=== PATIENT | male | born 1965 | race Caucasian/White ===

== ENCOUNTER 2016-12-11 08:39 | Emergency (ER) | payer SELFPAY ==
[~2016-12-11] VITALS: Ht 175.3 cm; Wt 117.9 kg
[2016-12-11] MEDS ORDERED: IV NORMAL SALINE 1000ML BAG 1,000 ML IV SCH (09:13)
[2016-12-11] MEDS ORDERED: ONDANSETRON PF 4 MG/2 ML VIAL. IV ONE (09:15)
[2016-12-11] MEDS ORDERED: FENTANYL PF 100 MCG/2 ML VIAL. IV ONE (09:15)
[2016-12-11 09:31] LABS: BASO % 1 % (0-3); EOS % 2 % (0-3); HEMATOCRIT 45.8 % (39.0-53.0); HEMOGLOBIN 15.1 g/dL (13.0-17.5); LYMPH # 1.5 x10^3/uL (1.0-4.8); LYMPH % 19 % (24-48); MEAN CORPUSCULAR HEMOGLOBIN 26 pg (25-35); MEAN CORPUSCULAR HGB CONC 33 g/dL (31-37); MEAN CORPUSCULAR VOLUME 78 fL (79-100); MONO % 15 % (0-9); NEUT % 64 % (31-73); PLATELET COUNT 321 x10^3/uL (140-400); RED BLOOD COUNT 5.87 x10^6/uL (4.30-5.70); RED CELL DISTRIBUTION WIDTH 15.2 % (11.5-14.5); WHITE BLOOD COUNT 7.9 x10^3/uL (4.0-11.0)
--- NOTE | 2016-12-11 09:33 | PHYS DOC ---
Past Medical History Past Medical History: Bipolar Past Surgical History: Other Additional Past Surgical Histo: "ON MY PRIVATE PARTS" Alcohol Use: Heavy Drug Use: Cocaine, Marijuana, Phencyclidine, Other Adult General Chief Complaint Chief Complaint: RECTAL BLEED HPI HPI Patient is a 51 year old male who presents with complaint of lower abdominal pain and rectal bleeding. Patient reports this is been occurring for months, but he decided to get checked out as it has "taken a toll on me". He describes a sharp pain across his lower abdomen without clear inciting or mitigating factors. He has not tried taking anything for the pain. He also reports some blood in his stool and on the toilet paper time he has a BM for the past few months. Only other acute complaint is nausea. No prior similar episodes. Review of Systems Review of Systems Constitutional: Denies fever or chills Eyes: Denies change in visual acuity or eye pain HENT: Denies nasal congestion or sore throat Respiratory: Denies cough or shortness of breath Cardiovascular: Denies chest pain GI: Lower abdominal pain, nausea, bloody stools. Denies diarrhea : Denies dysuria or hematuria Musculoskeletal: Denies back pain or joint pain Integument: Denies rash or skin lesions Neurologic: Denies headache, focal weakness or sensory changes Current Medications Current Medications Current Medications Medications (Trade) Dose Ordered Sig/Chidi Start Time Stop Time Status Last Admin Dose Admin Fentanyl Citrate (Fentanyl 2ml Vial) 25 mcg 1X ONCE 12/11/16 09:15 12/11/16 09:17 DC 12/11/16 09:26 25 MCG Ondansetron HCl (Zofran) 4 mg 1X ONCE 12/11/16 09:15 12/11/16 09:17 DC 12/11/16 09:22 4 MG Sodium Chloride (Iv Sodium Chloride 0.9% 1000ml Bag) 1,000 ml @ 1,000 mls/hr Q1H 12/11/16 09:13 12/11/16 10:12 DC 12/11/16 09:22 1,000 MLS/HR Allergies Allergies Allergies Coded Allergies Type Severity Reaction Last Updated Verified No Known Drug Allergies 12/11/16 No Physical Exam Physical Exam Constitutional: Well developed, well nourished, no acute distress, non-toxic appearance HENT: Normocephalic, atraumatic, bilateral external ears normal Eyes: EOMI, conjunctiva normal, no discharge Neck: Normal range of motion, no stridor Cardiovascular: Heart rate normal, regular rhythm, no murmur Lungs & Thorax: Bilateral breath sounds clear to auscultation Abdomen: Bowel sounds normal, soft, non-distended, lower abdominal TTP without guarding or rebound Rectal: 2 small external hemorrhoids noted, no gross blood in vault Skin: Warm, dry, no erythema, no rash Extremities: No obvious deformity, no edema Neurologic:Somnolent but easily arousable, oriented X 3, no gross deficits noted Current Patient Data Vital Signs Vital Signs Date Time Temp Pulse Resp B/P Pulse Ox O2 Delivery O2 Flow Rate FiO2 12/11/16 10:56 86 102/57 97 Room Air 12/11/16 10:26 17 12/11/16 08:50 98.3 98.3 Lab Values Laboratory Tests Test 12/11/16 08:58 12/11/16 10:33 12/11/16 11:14 White Blood Count 7.9x10^3/uL (4.0-11.0) Red Blood Count 5.87x10^6/uL (4.30-5.70) H Hemoglobin 15.1g/dL (13.0-17.5) Hematocrit 45.8% (39.0-53.0) Mean Corpuscular Volume 78fL (79-100) L Mean Corpuscular Hemoglobin 26pg (25-35) Mean Corpuscular Hemoglobin Concent 33g/dL (31-37) Red Cell Distribution Width 15.2% (11.5-14.5) H Platelet Count 321x10^3/uL (140-400) Neutrophils (%) (Auto) 64% (31-73) Lymphocytes (%) (Auto) 19% (24-48) L Monocytes (%) (Auto) 15% (0-9) H Eosinophils (%) (Auto) 2% (0-3) Basophils (%) (Auto) 1% (0-3) Neutrophils # (Auto) 5.1x10^3uL (1.8-7.7) Lymphocytes # (Auto) 1.5x10^3/uL (1.0-4.8) Monocytes # (Auto) 1.2x10^3/uL (0.0-1.1) H Eosinophils # (Auto) 0.1x10^3/uL (0.0-0.7) Basophils # (Auto) 0.0x10^3/uL (0.0-0.2) Prothrombin Time 13.7SEC (11.7-14.0) Prothrombin Time INR 1.1 (0.8-1.1) Sodium Level 138mmol/L (136-145) Potassium Level 4.2mmol/L (3.5-5.1) Chloride Level 101mmol/L (98-107) Carbon Dioxide Level 26mmol/L (21-32) Anion Gap 11 (6-14) Blood Urea Nitrogen 18mg/dL (8-26) Creatinine 2.3mg/dL (0.7-1.3) H Estimated GFR (Cockcroft-Gault) 30.0 BUN/Creatinine Ratio 8 (6-20) Glucose Level 95mg/dL (70-99) Calcium Level 11.1mg/dL (8.5-10.1) H Total Bilirubin 0.5mg/dL (0.2-1.0) Aspartate Amino Transferase (AST) 28U/L (15-37) Alanine Aminotransferase (ALT) 30U/L (16-63) Alkaline Phosphatase 91U/L (46-116) Total Protein 8.5g/dL (6.4-8.2) H Albumin 4.0g/dL (3.4-5.0) Albumin/Globulin Ratio 0.9 (1.0-1.7) L Lipase 95U/L (73-393) Stool Occult Blood Negative (NEG) Urine Color Yellow Urine Clarity Cloudy Urine pH 5.5 Urine Specific [place] 1.025 Urine Protein 30mg/dL (NEG-TRACE) Urine Glucose (UA) Negativemg/dL (NEG) Urine Ketones (Stick) 40mg/dL (NEG) Urine Blood Negative (NEG) Urine Nitrite Negative (NEG) Urine Bilirubin Small (NEG) Urine Urobilinogen Dipstick 0.2mg/dL (0.2 mg/dL) Urine Leukocyte Esterase Negative (NEG) Urine RBC 0/HPF (0-2) Urine WBC Rare/HPF (0-4) Urine Squamous Epithelial Cells Few/LPF Urine Bacteria 0/HPF (0-FEW) Urine Mucus Marked/LPF Laboratory Tests 12/11/16 08:58 Laboratory Tests 12/11/16 08:58 EKG EKG [] Radiology/Procedures Radiology/Procedures CT A/P: Impression: No acute abnormality is seen. Course & Med Decision Making Course & Med Decision Making Pertinent Labs and Imaging studies reviewed. (See chart for details) Patient is 51 year old male who presents with rectal bleeding, lower abdominal pain. Rectal pain and bleeding likely due to external hemorrhoids noted on exam. Will check labs, UA, CT abdomen/pelvis to evaluate for other acute process. IV fluids, pain meds, nausea meds ordered for patient relief. Imaging results as above, without acute abnormality. Labs notable for elevated creatinine; no prior to compare. Fecal occult blood test negative. Discussed results with patient, as well as need for close follow-up for evaluation of renal function. Will discharge with prescription for Preparation H and Phenergan , instructions for follow-up with PCP and GI, return precautions. Dragon Disclaimer Dragon Disclaimer This electronic medical record was generated, in whole or in part, using a voice recognition dictation system. Departure Departure Impression: Primary Impression: Rectal bleeding Additional Impressions: Abdominal pain Elevated serum creatinine External hemorrhoids Disposition: HOME, SELF-CARE Condition: IMPROVED Referrals: NO PCP (PCP) KAITLYNN SINGER MD Patient Instructions: Hemorrhoids, Rectal Bleeding Additional Instructions: Thank you for allowing us to provide care today in the Emergency Department. Take the provided medication as directed. Your kidney function was not very good today. You will need to follow up soon with a primary care doctor to discuss this. Schedule a follow up appointment with your primary care doctor and with a GI specialist using the provided contact information. Return promptly to the Emergency Department if you develop any new or concerning symptoms. Scripts Phenyleph/Mineral Oil/Petrolat (Preparation H Ointment)28 Gm Oint.appl28 Gm RC QID #1 TUBE Prov:ALFONSO MARTIN MD 12/11/16 Promethazine Hcl 25 Mg [id number] Mg PO Q6H PRN NAUSEA/VOMITING #15 TAB Prov:ALFONSO MARTIN MD 12/11/16 Problem Qualifiers ALFONSO MARTIN MD Dec 11, 2016 09:33
[2016-12-11 09:44] LABS: CALCIUM 11.1 mg/dL (8.5-10.1); CREATININE 2.3 mg/dL (0.7-1.3); POTASSIUM 4.2 mmol/L (3.5-5.1)
[2016-12-11 09:49] LABS: ALBUMIN/GLOBULIN RATIO 0.9 (1.0-1.7); TOTAL BILIRUBIN 0.5 mg/dL (0.2-1.0); TOTAL PROTEIN 8.5 g/dL (6.4-8.2)
[2016-12-11 09:51] LABS: INR 1.1 (0.8-1.1); PROTHROMBIN TIME PATIENT 13.7 SEC (11.7-14.0)
--- NOTE | 2016-12-11 10:34 | RAD ---
CT scan of the abdomen and pelvis without contrast 12/11/2016 Clinical history: Lower abdominal pain. Technique: Unenhanced, contiguous, 5 mm axial sections were obtained through the abdomen and pelvis. One or more of the following individualized dose reduction techniques were utilized for this study: 1. Automated exposure control. 2. Adjustment of the mA and/or kV according to patient size. 3. Use of iterative reconstruction technique. Findings: Images through the lung bases demonstrate minimal dependent subsegmental atelectasis bilaterally. The liver parenchyma has a decreased attenuation consistent with mild fatty infiltration. The spleen, pancreas, and adrenal glands are within normal limits. No renal or ureteral calculus is seen. There is no evidence of obstruction of either collecting system. Mild atherosclerotic calcification of the abdominal aorta is seen. The abdominal aorta tapers normally. The gallbladder is contracted. No free fluid or free air is seen within the abdomen. There is no evidence of bowel obstruction. The appendix is well-visualized and is within normal limits. Images through the pelvis demonstrate the urinary bladder distended with urine. Calcifications are seen within the pelvis consistent with phleboliths. No free fluid is seen. Minimal S shaped curvature of the thoracolumbar spine is seen. Degenerative changes are seen involving the lower thoracic and lumbar spine and both hips. Impression: No acute abnormality is seen.
[2016-12-11 10:52] LABS: NEG OBC FOB NEG; POS OBC FOB POS
[2016-12-11 10:56] VITALS: BP 102/57
[2016-12-11 11:31] LABS: BACTERIA,URINE 0 /HPF (0-FEW); BILIRUBIN,URINE SMALL (NEG); GLUCOSE,URINE NEGATIVE (NEG); NITRITE,URINE NEGATIVE (NEG); PH,URINE 5.5; PROTEIN,URINE 30 mg/dL (NEG-TRACE); RBC,URINE 0 /HPF (0-2); UROBILINOGEN,URINE 0.2 mg/dL (0.2 mg/dL); WBC,URINE RARE /HPF (0-4)
[2016-12-11 11:32] LABS: SQUAMOUS EPITHELIAL CELL,UR FEW /LPF
[2016-12-11] MEDS ORDERED: PROM25TA10 PO (11:50)
[2016-12-11] MEDS ORDERED: PHEN28OI RC (11:50)
== END 2016-12-11 11:55 | disposition home or self-care (01) ==
LOC: ER 08:39
DX: K64.4 Residual hemorrhoidal skin tags (principal); K62.5 Hemorrhage of anus and rectum; R74.0 Nonspecific elevation of levels of transaminase and lactic acid dehydrogenase [LDH]; R10.30 Lower abdominal pain, unspecified; F12.10 Cannabis abuse, uncomplicated; F14.10 Cocaine abuse, uncomplicated; F16.10 Hallucinogen abuse, uncomplicated; F10.10 Alcohol abuse, uncomplicated
CPT/HCPCS: 36415; 74176; 80053; 81001; 82274; 83690; 85027; 85610; 96361; 96374; 96375; 99285; J2405; J3010; J7030

== ENCOUNTER 2019-04-23 09:03 | Emergency (ER) | payer SELFPAY ==
[~2019-04-23] VITALS: Ht 177.8 cm; Wt 113.4 kg
[~2019-04-23 09:03] MED LIST: PHEN28OI RC; PROM25TA10 PO
[2019-04-23 09:15] VITALS: BP 130/62
[2019-04-23] MEDS ORDERED: IPRATRPIUM/ALBUTEROL 0.5/2.5MG 3 ML NEBU. NEB ONE (09:30)
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
[2019-04-23] MEDS ORDERED: AMOX500C PO (10:07)
[2019-04-23] MEDS ORDERED: BENZ100C PO (10:07)
[2019-04-23] MEDS ORDERED: TRAM-48 PO (10:07)
== END 2019-04-23 10:23 | disposition home or self-care (01) ==
LOC: ER 09:03
DX: J18.9 Pneumonia, unspecified organism (principal); Z71.6 Tobacco abuse counseling; R53.1 Weakness; R11.10 Vomiting, unspecified; F14.20 Cocaine dependence, uncomplicated; F10.20 Alcohol dependence, uncomplicated; Y90.9 Presence of alcohol in blood, level not specified; F17.200 Nicotine dependence, unspecified, uncomplicated; F31.9 Bipolar disorder, unspecified
CPT/HCPCS: 71046; 94640; 99284; J7620

== ENCOUNTER 2019-04-25 00:14 | Inpatient (IN) | payer SELFPAY ==
[~2019-04-25] VITALS: Ht 172.7 cm; Wt 90.7 kg
[~2019-04-25 00:14] MED LIST changes: +AMOX500C PO; +BENZ100C PO; +TRAM-48 PO
[2019-04-25] MEDS ORDERED: IPRATRPIUM/ALBUTEROL 0.5/2.5MG 3 ML NEBU. NEB ONE (03:30)
[2019-04-25 03:48] LABS: BASO # 0.1 x10^3/uL (0.0-0.2); BASO % 1 % (0-3); EOS # 0.3 x10^3/uL (0.0-0.7); EOS % 3 % (0-3); HEMATOCRIT 40.6 % (39.0-53.0); HEMOGLOBIN 13.4 g/dL (13.0-17.5); LYMPH # 2.5 x10^3/uL (1.0-4.8); LYMPH % 27 % (24-48); MEAN CORPUSCULAR HEMOGLOBIN 27 pg (25-35); MEAN CORPUSCULAR HGB CONC 33 g/dL (31-37); MEAN CORPUSCULAR VOLUME 81 fL (79-100); MONO % 12 % (0-9); NEUT # 5.2 x10^3/uL (1.8-7.7); NEUT % 57 % (31-73); PLATELET COUNT 301 x10^3/uL (140-400); RED BLOOD COUNT 5.02 x10^6/uL (4.30-5.70); RED CELL DISTRIBUTION WIDTH 14.5 % (11.5-14.5); WHITE BLOOD COUNT 9.1 x10^3/uL (4.0-11.0)
[2019-04-25 03:56] LABS: GFR 77.6; POTASSIUM 3.6 mmol/L (3.5-5.1)
[2019-04-25 04:01] LABS: ALBUMIN 3.1 g/dL (3.4-5.0); ALBUMIN/GLOBULIN RATIO 0.7 (1.0-1.7); TOTAL BILIRUBIN 0.2 mg/dL (0.2-1.0); TOTAL PROTEIN 7.8 g/dL (6.4-8.2)
[2019-04-25] MEDS ORDERED: IV NORMAL SALINE 1000ML BAG 1,000 ML IV ONE (04:30)
[2019-04-25] MEDS ORDERED: LIDO:MAALOX 1:1 20 ML SINGLE DOSE. SWSW ONE (05:00)
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
[2019-04-25] MEDS ORDERED: LORazepam 0.5 MG TABLET PO ONE (05:30)
[2019-04-25 05:45] LABS: AMPHETAMINE/METHAMPHETAMINE NEG (NEG); BARBITURATES NEG (NEG); BENZODIAZEPINES NEG (NEG); CANNABINOIDS NEG (NEG); COCAINE POS (NEG); METHADONE NEG (NEG); OPIATES NEG (NEG); PHENCYCLIDINE NEG (NEG)
--- NOTE | 2019-04-25 06:17 | RAD ---
PORTABLE CHEST 1V Clinical Indication: Shortness of breath. Comparison: Two-view chest, 2 days ago. Findings: The cardiomediastinal silhouette is normal. Lungs are clear. There is no pneumothorax. No pleural effusion is appreciated. No acute bone abnormality. IMPRESSION: No acute cardiopulmonary process. Electronically signed by: Tristan Rosa MD (04/25/2019 6:14 AM) [id number]
[2019-04-25] MEDS ORDERED: cefTRIAXone IV Push 1 GM VIAL. IVP ONE (06:30)
[2019-04-25] MEDS ORDERED: guaiFENesin/CODEINE 100mg/10mg 5 ML LIQUID PO ONE (06:30)
[2019-04-25] MEDS ORDERED: IV NORMAL SALINE 1000ML BAG 1,000 ML IV SCH (06:30)
[2019-04-25 07:17] VITALS: BP 135/75
[2019-04-25] MEDS ORDERED: IPRATRPIUM/ALBUTEROL 0.5/2.5MG 3 ML NEBU. NEB SCH (08:00)
[2019-04-25] MEDS ORDERED: ACETAMINOPHEN 500 MG TABLET PO PRN (09:00)
[2019-04-25] MEDS ORDERED: guaiFENesin DM 200MG/20MG 10 ML SYRUP PO PRN (09:00)
[2019-04-25] MEDS ORDERED: ACETAMINOPHEN/CODEINE 300/30MG TABLET. PO PRN (09:00)
[2019-04-25] MEDS ORDERED: traMADol 50 MG TABLET PO PRN (09:15)
--- NOTE | 2019-04-25 10:16 | PDOC1 ---
History and Physical Date of Admission Date of Admission DATE: 04/25/19 TIME: 10:10 Identification/Chief Complaint Chief Complaint sepsis sxs Source Source: Caregiver, Chart review, Patient History of Present Illness History of Present Illness 54-year-old -[place]ub[place] male came in to fast track of the ER last night for acute bronchitis symptoms - fulfilled SIRS criteria. Was about to be sent home then later on tells ER MD that he is suicidal. He lost his brother 3 weeks in a car accident. SItter at bedside. Seen by JAQUELINE today, not actively suicidal. Got Ativan, some agitation last night and is now feeding drowsy. Chest x-ray is clear, he sounds clear on auscultation Labs are unremarkable. Lactate is normal. Will go home today and needs a cab rid e. Referral for RSI etc. suicidal hotline given to patient Discussed with RNJaqueline liaison-given some safety clinics resources to Consults performed none Observation status Did test positive for cocaine on UDS though he denies Past Medical History Cardiovascular: No pertinent hx Pulmonary: No pertinent hx GI: No pertinent hx Heme/Onc: No pertinent hx Hepatobiliary: No pertinent hx Psych: No pertinent hx Rheumatologic: No pertinent hx Infectious disease: No pertinent hx ENT: No pertinent hx Endocrine: No pertinent hx Dermatology: No pertinent hx Past Surgical History Past Surgical History: No pertinent history Family History Family History: No Significant Social History Smoke: No ALCOHOL: none Drugs: Cocaine Current Problem List Problem List Problems Medical Problems: (1) Pneumonia Status: Acute Current Medications Current Medications Current Medications Albuterol/ Ipratropium (Duoneb) 3 ml 1X ONCE NEB Last administered on 04/25/19at 04:31; Start 04/25/19 at 03:30; Stop 04/25/19 at 03:31; Status DC Sodium Chloride 1,000 ml @ 1,000 mls/hr 1X ONCE IV Last administered on 04/25/19at 04:13; Start 04/25/19 at 04:30; Stop 04/25/19 at 05:29; Status DC Multi-Ingredient Mouthwash/Gargle (Gi Cocktail) 20 ml 1X ONCE SWSW Last administered on 04/25/19at 04:54; Start 04/25/19 at 05:00; Stop 04/25/19 at 05:01; Status DC Levofloxacin (Levaquin) 750 mg 1X ONCE PO Last administered on 04/25/19at 05:06; Start 04/25/19 at 05:15; Stop 04/25/19 at 05:16; Status DC Lorazepam (Ativan) 1 mg 1X ONCE PO Last administered on 04/25/19at 05:46; Start 04/25/19 at 05:30; Stop 04/25/19 at 05:31; Status DC Sodium Chloride 1,000 ml @ 100 mls/hr Q10H IV Last administered on 04/25/19at 07:27; Start 04/25/19 at 06:30; Stop 04/25/19 at 10:10; Status DC Albuterol/ Ipratropium (Duoneb) 3 ml RTQID NEB Last administered on 04/25/19at 08:07; Start 04/25/19 at 08:00; Stop 04/25/19 at 10:10; Status DC Guaifenesin/ Codeine Phosphate (Robitussin Ac) 5 ml 1X ONCE PO Last administered on 04/25/19at 07:26; Start 04/25/19 at 06:30; Stop 04/25/19 at 06:31; Status DC Ceftriaxone Sodium (Rocephin) 1 gm 1X ONCE IVP Last administered on 04/25/19at 06:31; Start 04/25/19 at 06:30; Stop 04/25/19 at 06:31; Status DC Guaifenesin (Robitussin Dm) 10 ml PRN Q6HRS PRN PO COUGH; Start 04/25/19 at 09:00 Acetaminophen (Tylenol) 500 mg PRN Q6HRS PRN PO HEADACHE / TEMP; Start 04/25/19 at 09:00 Acetaminophen/ Codeine Phosphate (Tylenol #3) 1 tab PRN Q6HRS PRN PO PAIN MILD; Start 04/25/19 at 09:00 Amoxicillin (Amoxil) 500 mg QRO180 PO ; Start 04/25/19 at 14:00 Benzonatate (Tessalon Perle) 100 mg MHA259 PO ; Start 04/25/19 at 14:00 Tramadol HCl (Ultram) 50 mg PRN Q6HRS PRN PO PAIN MODERATE TO SEVERE; Start 04/25/19 at 09:15; Stop 04/25/19 at 10:10; Status DC Active Scripts Active Ultram (Tramadol Hcl) 50 Mg Tablet 50 Mg PO Q6HRS PRN Tessalon Perle (Benzonatate) 100 Mg Capsule 1 Cap PO TID Amoxicillin 500 Mg Capsule 1 Cap PO Q8HRS Allergies Allergies: Coded Allergies: No Known Drug Allergies (Unverified , 12/11/16) ROS Review of System A 14 point ROS was completed with the following noted as positive: Other systems reviewed and negative. \CONSTITUTIONAL: No fever or chills EYES: No recent changes SKIN: No rash or itching CARDIOVASCULAR: No chest pain, syncope, palpitations, or edema RESPIRATORY: No SOB or cough GASTROINTESTINAL: No nausea, vomiting or abdominal pain NEUROLOGICAL: No headaches or weakness ENDOCRINE: No cold or heat intolerance GENITOURINARY: No urgency or frequency of urination MUSCULOSKELETAL: No back pain or joint pain LYMPHATICS: No enlarged lymph nodes PSYCHIATRIC: No anxiety or depression Physical Exam General: No acute distress, Other (drowsy from Ativan given because of agitation) HEENT: Atraumatic, PERRLA Lungs: Clear to auscultation, Normal air movement Heart: S1S2, RRR, no thrills, no rubs, no gallops, no murmurs Cardiovascular: S1, S2 Breasts: Normal, Rt breast nml w/o mass, Lt breast nml w/o mass, Nipples normal Abdomen: Normal bowel sounds, Soft, No tenderness, No hepatosplenomegaly, No masses Male Genitals Exam: normal genitalia, normal prostate PELVIC: Nml ext genitalia Extremities: No clubbing, No cyanosis, No edema, Normal pulses, No tenderness/swelling Skin: No rashes, No breakdown, No significant lesion Neuro: Normal gait, Normal speech, Strength at 5/5 X4 ext, Normal tone, Sensation intact, Cranial nerves 3-12 NL, Reflexes 2+ Psych/Mental Status: Mental status NL, Mood NL Vitals Vitals Vital Signs Date Time Temp Pulse Resp B/P (MAP) Pulse Ox O2 Delivery O2 Flow Rate FiO2 04/25/19 08:10 100 Nasal Cannula 2.0 04/25/19 07:17 97.6 75 22 135/75 (95) 97.6 Labs Labs Laboratory Tests Test 04/25/19 03:33 04/25/19 05:23 White Blood Count 9.1 x10^3/uL (4.0-11.0) Red Blood Count 5.02 x10^6/uL (4.30-5.70) Hemoglobin 13.4 g/dL (13.0-17.5) Hematocrit 40.6 % (39.0-53.0) Mean Corpuscular Volume 81 fL (79-100) Mean Corpuscular Hemoglobin 27 pg (25-35) Mean Corpuscular Hemoglobin Concent 33 g/dL (31-37) Red Cell Distribution Width 14.5 % (11.5-14.5) Platelet Count 301 x10^3/uL (140-400) Neutrophils (%) (Auto) 57 % (31-73) Lymphocytes (%) (Auto) 27 % (24-48) Monocytes (%) (Auto) 12 % (0-9) Eosinophils (%) (Auto) 3 % (0-3) Basophils (%) (Auto) 1 % (0-3) Neutrophils # (Auto) 5.2 x10^3/uL (1.8-7.7) Lymphocytes # (Auto) 2.5 x10^3/uL (1.0-4.8) Monocytes # (Auto) 1.0 x10^3/uL (0.0-1.1) Eosinophils # (Auto) 0.3 x10^3/uL (0.0-0.7) Basophils # (Auto) 0.1 x10^3/uL (0.0-0.2) Sodium Level 140 mmol/L (136-145) Potassium Level 3.6 mmol/L (3.5-5.1) Chloride Level 103 mmol/L (98-107) Carbon Dioxide Level 27 mmol/L (21-32) Anion Gap 10 (6-14) Blood Urea Nitrogen 9 mg/dL (8-26) Creatinine 1.0 mg/dL (0.7-1.3) Estimated GFR (Cockcroft-Gault) 77.6 BUN/Creatinine Ratio 9 (6-20) Glucose Level 146 mg/dL (70-99) Calcium Level 9.0 mg/dL (8.5-10.1) Total Bilirubin 0.2 mg/dL (0.2-1.0) Aspartate Amino Transf (AST/SGOT) 16 U/L (15-37) Alanine Aminotransferase (ALT/SGPT) 21 U/L (16-63) Alkaline Phosphatase 92 U/L (46-116) Troponin I Quantitative < 0.017 ng/mL (0.000-0.055) AY-Emp-O-Type Natriuretic Peptide 17 pg/mL (0-124) Total Protein 7.8 g/dL (6.4-8.2) Albumin 3.1 g/dL (3.4-5.0) Albumin/Globulin Ratio 0.7 (1.0-1.7) Ethyl Alcohol Level < 10 mg/dL (0-10) Urine Opiates Screen Neg (NEG) Urine Methadone Screen Neg (NEG) Urine Barbiturates Neg (NEG) Urine Phencyclidine Screen Neg (NEG) Urine Amphetamine/Methamphetamine Neg (NEG) Urine Benzodiazepines Screen Neg (NEG) Urine Cocaine Screen Pos (NEG) Urine Cannabinoids Screen Neg (NEG) Urine Ethyl Alcohol Neg (NEG) Laboratory Tests Test 04/25/19 03:33 04/25/19 05:23 White Blood Count 9.1 x10^3/uL (4.0-11.0) Red Blood Count 5.02 x10^6/uL (4.30-5.70) Hemoglobin 13.4 g/dL (13.0-17.5) Hematocrit 40.6 % (39.0-53.0) Mean Corpuscular Volume 81 fL (79-100) Mean Corpuscular Hemoglobin 27 pg (25-35) Mean Corpuscular Hemoglobin Concent 33 g/dL (31-37) Red Cell Distribution Width 14.5 % (11.5-14.5) Platelet Count 301 x10^3/uL (140-400) Neutrophils (%) (Auto) 57 % (31-73) Lymphocytes (%) (Auto) 27 % (24-48) Monocytes (%) (Auto) 12 % (0-9) Eosinophils (%) (Auto) 3 % (0-3) Basophils (%) (Auto) 1 % (0-3) Neutrophils # (Auto) 5.2 x10^3/uL (1.8-7.7) Lymphocytes # (Auto) 2.5 x10^3/uL (1.0-4.8) Monocytes # (Auto) 1.0 x10^3/uL (0.0-1.1) Eosinophils # (Auto) 0.3 x10^3/uL (0.0-0.7) Basophils # (Auto) 0.1 x10^3/uL (0.0-0.2) Sodium Level 140 mmol/L (136-145) Potassium Level 3.6 mmol/L (3.5-5.1) Chloride Level 103 mmol/L (98-107) Carbon Dioxide Level 27 mmol/L (21-32) Anion Gap 10 (6-14) Blood Urea Nitrogen 9 mg/dL (8-26) Creatinine 1.0 mg/dL (0.7-1.3) Estimated GFR (Cockcroft-Gault) 77.6 BUN/Creatinine Ratio 9 (6-20) Glucose Level 146 mg/dL (70-99) Calcium Level 9.0 mg/dL (8.5-10.1) Total Bilirubin 0.2 mg/dL (0.2-1.0) Aspartate Amino Transf (AST/SGOT) 16 U/L (15-37) Alanine Aminotransferase (ALT/SGPT) 21 U/L (16-63) Alkaline Phosphatase 92 U/L (46-116) Troponin I Quantitative < 0.017 ng/mL (0.000-0.055) QD-Xsa-R-Type Natriuretic Peptide 17 pg/mL (0-124) Total Protein 7.8 g/dL (6.4-8.2) Albumin 3.1 g/dL (3.4-5.0) Albumin/Globulin Ratio 0.7 (1.0-1.7) Ethyl Alcohol Level < 10 mg/dL (0-10) Urine Opiates Screen Neg (NEG) Urine Methadone Screen Neg (NEG) Urine Barbiturates Neg (NEG) Urine Phencyclidine Screen Neg (NEG) Urine Amphetamine/Methamphetamine Neg (NEG) Urine Benzodiazepines Screen Neg (NEG) Urine Cocaine Screen Pos (NEG) Urine Cannabinoids Screen Neg (NEG) Urine Ethyl Alcohol Neg (NEG) VTE Prophylaxis Ordered VTE Prophylaxis Devices: Yes VTE Pharmacological Prophylaxi: Yes Assessment/Plan Assessment/Plan Not actively suicidal Bronchitis symptoms with negative chest x-ray including auscultation Positive cocaine on UDS Plan: observation status, cleared by PAT team Resources/referrals given No new home meds needed from me Continue all home meds-recently discharged on amox claims he cannot afford- nothing can do about that, chest x-ray clean DANISH RUEDA MD Apr 25, 2019 10:16
--- NOTE | 2019-04-25 10:16 | PDOC3 ---
Discharge Summary Visit Information Date of Admission: Apr 24, 2019 Date of Discharge: Apr 25, 2019 Admitting Diagnosis Comment: Not actively suicidal Bronchitis symptoms with negative chest x-ray including auscultation Positive cocaine on UDS Plan: observation status, cleared by PAT team Resources/referrals given No new home meds needed from [facility] Continue all home meds-recently discharged on amox claims he cannot afford- nothing can do about that, chest x-ray clean Final Diagnosis Problems Medical Problems: (1) Pneumonia Status: Acute Brief Hospital Course Allergies Allergies Coded Allergies Type Severity Reaction Last Updated Verified No Known Drug Allergies 12/11/16 No Vital Signs Vital Signs Date Time Temp Pulse Resp B/P (MAP) Pulse Ox O2 Delivery O2 Flow Rate FiO2 04/25/19 08:10 100 Nasal Cannula 2.0 04/25/19 07:17 97.6 75 22 135/75 (95) 97.6 Lab Results Laboratory Tests Test 04/25/19 03:33 04/25/19 05:23 White Blood Count 9.1 x10^3/uL (4.0-11.0) Red Blood Count 5.02 x10^6/uL (4.30-5.70) Hemoglobin 13.4 g/dL (13.0-17.5) Hematocrit 40.6 % (39.0-53.0) Mean Corpuscular Volume 81 fL (79-100) Mean Corpuscular Hemoglobin 27 pg (25-35) Mean Corpuscular Hemoglobin Concent 33 g/dL (31-37) Red Cell Distribution Width 14.5 % (11.5-14.5) Platelet Count 301 x10^3/uL (140-400) Neutrophils (%) (Auto) 57 % (31-73) Lymphocytes (%) (Auto) 27 % (24-48) Monocytes (%) (Auto) 12 % (0-9) Eosinophils (%) (Auto) 3 % (0-3) Basophils (%) (Auto) 1 % (0-3) Neutrophils # (Auto) 5.2 x10^3/uL (1.8-7.7) Lymphocytes # (Auto) 2.5 x10^3/uL (1.0-4.8) Monocytes # (Auto) 1.0 x10^3/uL (0.0-1.1) Eosinophils # (Auto) 0.3 x10^3/uL (0.0-0.7) Basophils # (Auto) 0.1 x10^3/uL (0.0-0.2) Sodium Level 140 mmol/L (136-145) Potassium Level 3.6 mmol/L (3.5-5.1) Chloride Level 103 mmol/L (98-107) Carbon Dioxide Level 27 mmol/L (21-32) Anion Gap 10 (6-14) Blood Urea Nitrogen 9 mg/dL (8-26) Creatinine 1.0 mg/dL (0.7-1.3) Estimated GFR (Cockcroft-Gault) 77.6 BUN/Creatinine Ratio 9 (6-20) Glucose Level 146 mg/dL (70-99) Calcium Level 9.0 mg/dL (8.5-10.1) Total Bilirubin 0.2 mg/dL (0.2-1.0) Aspartate Amino Transf (AST/SGOT) 16 U/L (15-37) Alanine Aminotransferase (ALT/SGPT) 21 U/L (16-63) Alkaline Phosphatase 92 U/L (46-116) Troponin I Quantitative < 0.017 ng/mL (0.000-0.055) XW-Szk-V-Type Natriuretic Peptide 17 pg/mL (0-124) Total Protein 7.8 g/dL (6.4-8.2) Albumin 3.1 g/dL (3.4-5.0) Albumin/Globulin Ratio 0.7 (1.0-1.7) Ethyl Alcohol Level < 10 mg/dL (0-10) Urine Opiates Screen Neg (NEG) Urine Methadone Screen Neg (NEG) Urine Barbiturates Neg (NEG) Urine Phencyclidine Screen Neg (NEG) Urine Amphetamine/Methamphetamine Neg (NEG) Urine Benzodiazepines Screen Neg (NEG) Urine Cocaine Screen Pos (NEG) Urine Cannabinoids Screen Neg (NEG) Urine Ethyl Alcohol Neg (NEG) Laboratory Tests Test 04/25/19 03:33 04/25/19 05:23 White Blood Count 9.1 x10^3/uL (4.0-11.0) Red Blood Count 5.02 x10^6/uL (4.30-5.70) Hemoglobin 13.4 g/dL (13.0-17.5) Hematocrit 40.6 % (39.0-53.0) Mean Corpuscular Volume 81 fL (79-100) Mean Corpuscular Hemoglobin 27 pg (25-35) Mean Corpuscular Hemoglobin Concent 33 g/dL (31-37) Red Cell Distribution Width 14.5 % (11.5-14.5) Platelet Count 301 x10^3/uL (140-400) Neutrophils (%) (Auto) 57 % (31-73) Lymphocytes (%) (Auto) 27 % (24-48) Monocytes (%) (Auto) 12 % (0-9) Eosinophils (%) (Auto) 3 % (0-3) Basophils (%) (Auto) 1 % (0-3) Neutrophils # (Auto) 5.2 x10^3/uL (1.8-7.7) Lymphocytes # (Auto) 2.5 x10^3/uL (1.0-4.8) Monocytes # (Auto) 1.0 x10^3/uL (0.0-1.1) Eosinophils # (Auto) 0.3 x10^3/uL (0.0-0.7) Basophils # (Auto) 0.1 x10^3/uL (0.0-0.2) Sodium Level 140 mmol/L (136-145) Potassium Level 3.6 mmol/L (3.5-5.1) Chloride Level 103 mmol/L (98-107) Carbon Dioxide Level 27 mmol/L (21-32) Anion Gap 10 (6-14) Blood Urea Nitrogen 9 mg/dL (8-26) Creatinine 1.0 mg/dL (0.7-1.3) Estimated GFR (Cockcroft-Gault) 77.6 BUN/Creatinine Ratio 9 (6-20) Glucose Level 146 mg/dL (70-99) Calcium Level 9.0 mg/dL (8.5-10.1) Total Bilirubin 0.2 mg/dL (0.2-1.0) Aspartate Amino Transf (AST/SGOT) 16 U/L (15-37) Alanine Aminotransferase (ALT/SGPT) 21 U/L (16-63) Alkaline Phosphatase 92 U/L (46-116) Troponin I Quantitative < 0.017 ng/mL (0.000-0.055) MN-Bgz-J-Type Natriuretic Peptide 17 pg/mL (0-124) Total Protein 7.8 g/dL (6.4-8.2) Albumin 3.1 g/dL (3.4-5.0) Albumin/Globulin Ratio 0.7 (1.0-1.7) Ethyl Alcohol Level < 10 mg/dL (0-10) Urine Opiates Screen Neg (NEG) Urine Methadone Screen Neg (NEG) Urine Barbiturates Neg (NEG) Urine Phencyclidine Screen Neg (NEG) Urine Amphetamine/Methamphetamine Neg (NEG) Urine Benzodiazepines Screen Neg (NEG) Urine Cocaine Screen Pos (NEG) Urine Cannabinoids Screen Neg (NEG) Urine Ethyl Alcohol Neg (NEG) Brief Hospital Course Mr. Martínez is a 54 old [sex] who presented with [ ] 54-year-old -[place] male came in to fast track of the ER last night for acute bronchitis symptoms - fulfilled SIRS criteria. Was about to be sent home then later on tells ER MD that he is suicidal. He lost his brother 3 weeks in a car accident. SItter at bedside. Seen by PAT today, not actively suicidal. Got Ativan, some agitation last night and is now feeding drowsy. Chest x-ray is clear, he sounds clear on auscultation Labs are unremarkable. Lactate is normal. Will go home today and needs a cab ride. Referral for RSI etc. suicidal hotline given to patient Discussed with RNJaqueline liaison-given some safety clinics resources to Consults performed none Observation status Did test positive for cocaine on UDS though he denies Discharge Information Condition at Discharge: Improved, Stable Disposition/Orders: D/C to Home Scheduled Amoxicillin (Amoxicillin) 500 Mg Capsule, 1 CAP PO Q8HRS for infection, #30 Prescribed by: MARIUM LEE MD on 04/23/19 1007 Last Action: Converted on 04/25/19900 by DANISH TERMULO Benzonatate (Tessalon Perle) 100 Mg Capsule, 1 CAP PO TID for cough, #21 Prescribed by: MARIUM LEE MD on 04/23/19 1007 Last Action: Converted on 04/25/19900 by DANISH RUEDA Scheduled PRN Tramadol Hcl (Ultram) 50 Mg Tablet, 50 MG PO Q6HRS PRN for PAIN, #14 Ref 0 Prescribed by: MARIUM LEE MD on 04/23/19 1007 Last Action: Converted on 04/25/19 09 by DANISH FRAGA MD Apr 25, 2019 10:16
[2019-04-25 11:17] VITALS: BP 125/67
[2019-04-25] MEDS ORDERED: BENZONATATE 100 MG CAPSULE. PO SCH (14:00)
[2019-04-25] MEDS ORDERED: AMOXICILLIN 250 MG CAPSULE. PO SCH (14:00)
--- NOTE | 2019-04-25 18:01 | EKG ---
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
== END 2019-04-25 12:38 | disposition home or self-care (01) | DRG 194 ==
LOC: ER 01:20 → 5 NORTH 06:13
PROVIDERS: ADMIT Family Medicine; ATTEND Family Medicine
DX: J18.9 Pneumonia, unspecified organism (principal); R45.851 Suicidal ideations; J20.9 Acute bronchitis, unspecified; F14.90 Cocaine use, unspecified, uncomplicated; Z79.899 Other long term (current) drug therapy
CPT/HCPCS: 36415; 71045; 80053; 80307; 83880; 84484; 85025; 93005; 94640; 94760; 99406; G0480; J0696; J7030; J7620

== ENCOUNTER → 2021-03-23 | Outpatient (CLI) | payer MEDICAID ==
[~2021-03-23] MED LIST changes: -PHEN28OI RC; +PHEN28OI8 RC
--- NOTE | 2021-03-23 10:22 | KCIC ---
EXAM: AP pelvis, lateral view left hip DATE: 03/23/2021 8:42 AM INDICATION: Reason: Hip pain when standing for long period of time / Spl. Instructions: No injury / H istory: . COMPARISON: No Prior FINDINGS: No evidence of acute fracture or dislocation. Small left os acetabulum. Prominence of the left femora l head/neck junction. No symphysis pubis or SI joint diastases. Moderate colonic stool content. Joint spaces are grossly preserved. Minimal proliferative changes bilateral hips IMPRESSION: 1. Mild hip joint degenerative change bilaterally. 2. 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 Electronically signed by: Reid Hoffman MD (03/23/2021 10:19 AM) [place]ON
--- NOTE | 2021-03-23 10:23 | KCIC ---
Exam: 1. Right ribs series 2. PA/lateral chest Date: 03/23/2021 8:42 AM Comparison: 04/25/2019 04/23/2019 Indication: Right sided anterior mid chest pain, pain on expiration Findings/ Impression: The heart is not enlarged. Mediastinal and hilar contours are normal. No focal parenchymal airspace o pacity. No pleural effusion or pneumothorax. AP, Oblique and Spot images of the right ribs are negative for acute displaced rib fracture. Negative focal pleural elevation. Symmetrical intercostal spacing. It is of note that an acute non-displaced rib fracture can be in-apparent on initial post-trauma imag ing. Electronically signed by: Reid Hoffman MD (03/23/2021 10:21 AM) BRANDON
--- NOTE | 2021-03-23 10:30 | KCIC ---
EXAM: AP, lateral and oblique views of the left knee DATE: 03/23/2021 8:42 AM INDICATION: Reason: Left knee pain when standing for long period of time. / Spl. Instructions: No inj ury / History: COMPARISON: No Prior FINDINGS: No acute fracture or dislocation. Small joint body posterior joint line. Scattered left knee joint os teoarthritis with joint space effacement medial compartment and prominent tricompartmental osteophyte s. No knee joint effusion. IMPRESSION: No acute fracture or dislocation. Severe left knee joint osteoarthritis. Electronically signed by: Reid Hoffman MD (03/23/2021 10:28 AM) [place]
== END ==
LOC: KCIC 08:24
PROVIDERS: ATTEND Physician Assistant Medical
DX: M16.12 Unilateral primary osteoarthritis, left hip (principal); M17.12 Unilateral primary osteoarthritis, left knee; R07.9 Chest pain, unspecified
CPT/HCPCS: 71046; 71100; 73501; 73562